=== PATIENT | male | born 1945 | race Caucasian/White ===

== ENCOUNTER 2018-10-21 11:38 | Outpatient (CLI) | payer MEDICARE, BC ==
--- NOTE | 2018-10-21 17:51 | ULT ---
ULTRASOUND RETROPERITONEUM COMPLETE: (RENAL) DOPPLER DUPLEX: 10/21/2018 HISTORY: A 73-year-old male with chronic kidney disease, stage 3, N18.3, and hypertension. TECHNIQUE: Church-scale, color-flow, and spectral analysis of the bilateral kidneys and the select levels of the b ilateral renal arteries. FINDINGS: The urinary bladder was not imaged. The right kidney measures 12 x 6.5 x 7 cm. The left kidney measures 11.5 x 5.5 x 5.5 cm. Bilateral renal parenchymal echogenicity and parenchymal thickness are normal. No moderate-sized or large solid or cystic renal lesion. No hydronephrosis bilaterally. The highest peak systolic velocities: Right renal artery: 36.5 cm/s Left renal artery: 50.5 cm/s Aorta: 25.5 cm/s Right renal artery/aorta ratio: 1.4 Left renal artery/aorta ratio: 2.0 Resistive indices: Right arcuate: 0.69 Left arcuate: 0.66 IMPRESSION: 1. Normal sonographic appearance of the bilateral kidneys. 2. No renal Doppler abnormality. TOREY Lorenzo POS: OPHELIA
== END 2018-10-21 11:39 | disposition home or self-care (01) ==
LOC: BICULT 11:38
PROVIDERS: ATTEND Internal Medicine Nephrology
DX: I13.10 Hypertensive heart and chronic kidney disease without heart failure, with stage 1 through stage 4 chronic kidney disease, or unspecified chronic kidney disease (principal); N18.3 Chronic kidney disease, stage 3 (moderate); I25.10 Atherosclerotic heart disease of native coronary artery without angina pectoris; E78.5 Hyperlipidemia, unspecified; I21.9 Acute myocardial infarction, unspecified; R00.1 Bradycardia, unspecified; M19.90 Unspecified osteoarthritis, unspecified site; N40.0 Benign prostatic hyperplasia without lower urinary tract symptoms; K57.30 Diverticulosis of large intestine without perforation or abscess without bleeding; D12.6 Benign neoplasm of colon, unspecified; K21.9 Gastro-esophageal reflux disease without esophagitis; R91.1 Solitary pulmonary nodule; N45.1 Epididymitis; N41.9 Inflammatory disease of prostate, unspecified; N44.00 Torsion of testis, unspecified; Z98.52 Vasectomy status
CPT/HCPCS: 76700; 76770

== ENCOUNTER 2023-05-17 12:19 | Outpatient (CLI) | payer MEDICARE, BC | END 2023-05-17 12:20 | disposition home or self-care (01) | LOC: CT 12:19 | PROVIDERS: ATTEND Internal Medicine | DX: R91.1 Solitary pulmonary nodule (principal); R22.1 Localized swelling, mass and lump, neck; D73.89 Other diseases of spleen; I70.0 Atherosclerosis of aorta; J43.9 Emphysema, unspecified; J98.4 Other disorders of lung; M89.9 Disorder of bone, unspecified; I25.10 Atherosclerotic heart disease of native coronary artery without angina pectoris | CPT/HCPCS: 70492; 71260; 82565 ==

== ENCOUNTER 2023-05-22 12:20 | Outpatient (CLI) | payer MEDICARE, BC | END 2023-05-22 12:21 | disposition home or self-care (01) | LOC: MRI 12:20 → SCSMRI 12:21 | PROVIDERS: ATTEND Internal Medicine | DX: G93.89 Other specified disorders of brain (principal) | CPT/HCPCS: 70553; 88173; 88305 ==

== ENCOUNTER 2023-06-19 10:24 | Outpatient (CLI) | payer MEDICARE, BC ==
[2023-06-19 12:59] LABS: Hematocrit 49.2 % (38.8-50.0); Hemoglobin 16.2 g/dL (13.5-17.5)
[2023-06-19 13:23] LABS: Anion Gap 17 mmol/L (10-20); BUN (Urea Nitrogen) 20 mg/dL (8.4-25.7); Calc. Creatinine Clearance 0 mL/min (70-130); Carbon Dioxide 22 mmol/L (23-31); Chloride 105 mmol/L (98-107); Estimated GFR 65; Glucose 87 mg/dL (83-110); Potassium 5.2 mmol/L (3.5-5.1); Sodium 139 mmol/L (136-145)
== END 2023-06-19 10:25 | disposition home or self-care (01) ==
LOC: LABBT 10:24
PROVIDERS: ATTEND Student in an Organized Health Care Education/Training Program
DX: Z01.812 Encounter for preprocedural laboratory examination (principal); D48.9 Neoplasm of uncertain behavior, unspecified; R59.0 Localized enlarged lymph nodes
CPT/HCPCS: 80048; 85014; 85018

== ENCOUNTER → 2023-06-19 | Outpatient (CLI) | payer MEDICARE, BC | LOC: PET 08:00 | PROVIDERS: ATTEND Student in an Organized Health Care Education/Training Program | DX: R59.1 Generalized enlarged lymph nodes (principal); C77.0 Secondary and unspecified malignant neoplasm of lymph nodes of head, face and neck; Z01.812 Encounter for preprocedural laboratory examination; D48.9 Neoplasm of uncertain behavior, unspecified; R59.0 Localized enlarged lymph nodes | CPT/HCPCS: 78815; 80048; 85014; 85018; A9552 ==

== ENCOUNTER 2023-06-26 08:52 | Day surgery (SDC) | payer MEDICARE, BC ==
[2023-06-19 12:05] VITALS: BMI 29.7
[2023-06-26] MEDS ORDERED: fentaNYL PF 100 MCG/2 ML SYRINGE ONE (10:42)
[2023-06-26] MEDS ORDERED: EPINEPHrine 1 MG/ML AMP ONE (10:47)
[2023-06-26] MEDS ORDERED: Lidocaine 1% (PF) 30 ML VIAL ONE (10:47)
[2023-06-26] MEDS ORDERED: Bacitracin Zinc Ointment 30 gm TUBE ONE (10:47)
[2023-06-26] MEDS ORDERED: Ondansetron PF 4 MG/2 ML Vial ONE (12:20)
[2023-06-26] MEDS ORDERED: PROPOFOL 200 MG/20 ML VIAL ONE (12:20)
[2023-06-26] MEDS ORDERED: NEOSTIGMINE 3 MG/3 ML SYR 3 MG/3 ML SYRINGE ONE (12:20)
[2023-06-26] MEDS ORDERED: Rocuronium Bromide 10 MG/ML (10ML VIAL) ONE (12:20)
[2023-06-26] MEDS ORDERED: Glycopyrrolate 0.2 MG/ML 5 ML SYRINGE ONE (12:20)
[2023-06-26] MEDS ORDERED: Lidocaine 1% PF 5 ML VIAL ONE (12:20)
[2023-06-26] MEDS ORDERED: ePHEDrine Sulfate 50 MG/10 ML VIAL ONE (12:20)
[2023-06-26] MEDS ORDERED: Dexamethasone 20 MG/5 ML VIAL ONE (12:20)
[2023-06-26] MEDS ORDERED: fentaNYL 50 mcg/mL 1 mL Vial ONE (14:45)
[2023-06-26] MEDS ORDERED: traMADol HCl 50 MG TAB ONE (15:17)
== END 2023-06-26 15:46 | disposition home or self-care (01) ==
LOC: SDC 08:52
PROVIDERS: ATTEND Student in an Organized Health Care Education/Training Program
PROC: 07B13ZX Excision of Right Neck Lymphatic, Percutaneous Approach, Diagnostic (ICD-10-PCS; principal; 2023-06-26)
DX: C96.9 Malignant neoplasm of lymphoid, hematopoietic and related tissue, unspecified (principal); D48.9 Neoplasm of uncertain behavior, unspecified; R59.1 Generalized enlarged lymph nodes; L02.11 Cutaneous abscess of neck; H26.9 Unspecified cataract; I25.10 Atherosclerotic heart disease of native coronary artery without angina pectoris; Z87.891 Personal history of nicotine dependence; Z88.5 Allergy status to narcotic agent; Z91.048 Other nonmedicinal substance allergy status; Z88.8 Allergy status to other drugs, medicaments and biological substances; Z79.899 Other long term (current) drug therapy
CPT/HCPCS: 38510; 87070; 87075; 87076; 87077; 87186; 87205; C1713; J3010; 88184; 88185; 88189; 88305; 88342; J0171; J1100; J2001; J2405; J2704

== ENCOUNTER 2023-07-30 12:01 | Outpatient (CLI) | payer MEDICARE, BC | END 2023-07-30 12:02 | disposition home or self-care (01) | LOC: BICRAD 12:01 | PROVIDERS: ATTEND Radiology Radiation Oncology | DX: M25.552 Pain in left hip (principal) ==

== ENCOUNTER 2023-08-15 09:51 | Outpatient (CLI) | payer MEDICARE, BC | END 2023-08-15 09:52 | disposition home or self-care (01) | LOC: RAD 09:51 | PROVIDERS: ATTEND Radiology Radiation Oncology | DX: R13.10 Dysphagia, unspecified (principal) | CPT/HCPCS: 74230 ==

== ENCOUNTER 2023-12-18 11:00 | Outpatient (CLI) | payer MEDICARE, BC | END 2023-12-18 11:01 | LOC: PET 11:00 | PROVIDERS: ATTEND Radiology Radiation Oncology | DX: C77.0 Secondary and unspecified malignant neoplasm of lymph nodes of head, face and neck (principal); R59.0 Localized enlarged lymph nodes | CPT/HCPCS: 78815; A9552 ==

== ENCOUNTER 2024-12-24 08:27 | Outpatient (CLI) | payer MEDICARE, BC ==
[2024-12-24] MEDS ORDERED: Iopamidol 370 76% 100 ML VIAL ONE (09:51)
== END 2024-12-24 08:28 | disposition home or self-care (01) ==
LOC: BICCT 08:27
PROVIDERS: ATTEND Radiology Radiation Oncology
DX: C77.0 Secondary and unspecified malignant neoplasm of lymph nodes of head, face and neck (principal); R91.8 Other nonspecific abnormal finding of lung field
CPT/HCPCS: 36415; 70491; 71260; 82565

== ENCOUNTER 2025-09-25 13:12 | Outpatient (CLI) | payer MEDICARE, BC ==
[~2025-09-25 13:12] MED LIST: Iopamidol 370 76% 100 ML VIAL ONE
[2025-09-25 13:49] LABS: Estimated GFR - POC 76.0
== END 2025-09-25 13:13 | disposition home or self-care (01) ==
LOC: CT 13:12
PROVIDERS: ATTEND Radiology Radiation Oncology
DX: C77.0 Secondary and unspecified malignant neoplasm of lymph nodes of head, face and neck (principal); J43.9 Emphysema, unspecified
CPT/HCPCS: 36415; 70491; 71260; 82565